=== PATIENT | female | born 2000 | race Caucasian/White ===

== ENCOUNTER 2023-08-05 09:50 | Emergency (ER) | payer OTHER ==
[2023-08-05] MEDS ORDERED: Ketorolac Tromethamine 30 MG (1 mL) VIAL ONE (10:19)
[2023-08-05 10:40] LABS: Hematocrit 45.1 % (34.9-44.5); Hemoglobin 15.7 g/dL (12.0-15.5); Mean Corpuscular HGB CONC 34.8 g/dL (32.0-36.0); Mean Corpuscular Hemoglobin 28.6 pg (27.0-33.0); Mean Corpuscular Volume 82.3 fl (81.6-98.3); Mean Platelet Volume 9.6 fl (7.4-10.4); Platelet Count 332 10x3/uL (150-450); RBC Distribution Width 12.4 % (11.5-14.5); Red Blood Cell (RBC) Count 5.48 10x6/uL (3.90-5.03); White Blood Cell (WBC) Count 4.4 10x3/uL (3.5-10.5)
[2023-08-05 10:41] LABS: MDiff Complete? YES
[2023-08-05 10:51] LABS: ALT (SGPT) 62 U/L (8-55); AST (SGOT) 136 U/L (5-34); Albumin 4.4 g/dL (3.5-5.0); Alkaline Phosphatase 63 U/L (40-110); Anion Gap 15 mmol/L (10-20); BUN (Urea Nitrogen) 4 mg/dL (7.0-18.7); Bilirubin, Total 0.5 mg/dL (0.2-1.2); Calc. Creatinine Clearance 0 mL/min (70-130); Calcium 9.1 mg/dL (7.8-10.44); Carbon Dioxide 23 mmol/L (22-29); Chloride 105 mmol/L (98-107); Estimated GFR 116; Globulin 3.2 g/dL (2.4-3.5); Glucose 96 mg/dL (70-105); Potassium 3.2 mmol/L (3.5-5.1); Protein, Total 7.6 g/dL (6.0-8.3); Sodium 140 mmol/L (136-145)
[2023-08-05 13:31] LABS: Band 3 % (5-11); Lymphocytes 35 % (21-51); Monocytes 7 % (0-10); Neutrophil 44 % (42-75); Promyelocytes 1 % (0-0); Reactive Lymphocytes 9 % (0-10)
[2023-08-05 13:38] LABS: RBC Morph Comment Within Normal Limits
[2023-08-05 13:39] LABS: Anisocytosis SLIGHT = 6-15 cells (100X) (0-5/hpf); Giant Platelets SLIGHT HPF (0-5); Hypochromia SLIGHT = 6-15 cells (100X) (0-5/hpf); Platelet Adequacy Comment Appears Adequate
== END 2023-08-05 11:18 | disposition home or self-care (01) ==
LOC: CSHERS 09:50
DX: A09 Infectious gastroenteritis and colitis, unspecified (principal); I10 Essential (primary) hypertension
CPT/HCPCS: 80053; 85025; 96374; J1885